=== PATIENT | male | born 1950 | race Caucasian/White ===

== ENCOUNTER 2024-02-27 17:10 | Inpatient (IN) | payer MEDICARE, MEDICAID ==
[~2024-02-27] VITALS: Ht 188 cm; Wt 89.4 kg
[2024-02-27 18:12] LABS: COVID AG,FIA SOURCE NASAL SWAB
[2024-02-27 18:18] LABS: BASOPHILS % (AUTO) 1.2 % (0.0-2.0); HEMATOCRIT 41.7 % (41-53); HEMOGLOBIN 13.7 g/dL (13.5-17.5); LYMPHOCYTES # (AUTO) 1.9 K/uL (1.0-4.8); LYMPHOCYTES % (AUTO) 16.3 % (22.0-44.0); MEAN CORPUSCULAR HEMOGLOBIN 30.2 pg (26.0-34.0); MEAN CORPUSCULAR HGB CONC 32.9 G/dL (31.0-37.0); MEAN CORPUSCULAR VOLUME 92 fL (80-100); MONOCYTES # (AUTO) 0.8 K/uL (0.1-1.0); MONOCYTES % (AUTO) 7.2 % (2.0-9.0); NEUTROPHILS # (AUTO) 8.3 K/uL (1.8-7.7); NEUTROPHILS % (AUTO) 72.3 % (40.0-70.0); PLATELET COUNT (AUTO) 289 K/uL (150-450); RED BLOOD CELL COUNT(AUTO) 4.55 MIL/uL (4.50-5.90); WHITE BLOOD COUNT (AUTO) 11.4 K/uL (4.5-11.0)
[2024-02-27 18:26] LABS: ANION GAP 7 mmol/L (8-16); APPEARANCE,URINE CLEAR (CLEAR); BILIRUBIN,URINE NEGATIVE (NEGATIVE); CALCIUM, TOTAL 9.1 mg/dL (8.8-10.5); CARBON DIOXIDE 29 mmol/L (22-29); CHLORIDE 101 mmol/L (98-107); COLOR,URINE COLORLESS (YELLOW); CREATININE 1.48 mg/dL (0.60-1.30); GLOMERULAR FILTR. RATE CALC 47 mL/min (>60); GLUCOSE, URINE (UA) NEGATIVE (NEGATIVE); GLUCOSE,RANDOM 94 mg/dL (70-110); KETONES,URINE NEGATIVE (NEGATIVE); LEUKOCYTE ESTERASE ,URINE NEGATIVE (NEGATIVE); NITRATE,URINE NEGATIVE (NEGATIVE); OCCULT BLOOD,URINE NEGATIVE (NEGATIVE); PH,URINE 6.5 (5.0-8.0); PH,URINE DRUG SCREEN 6.5 (5.0-8.0); POTASSIUM 4.7 mmol/L (3.5-5.1); PROTEIN,URINE NEGATIVE (NEGATIVE); SODIUM SERUM 137 mmol/L (136-145); SPECIFIC GRAVITIY, URINE 1.008 (1.003-1.030); UREA NITROGEN, BLOOD 18 mg/dL (7-18); UROBILINOGEN,URINE <=1.0 mg/dL (<=1.0)
[2024-02-27 18:29] LABS: ALCOHOL, BLOOD (SERUM) < 3 mg/dL (0-10); ALCOHOL, URINE DRUG SCREEN NEGATIVE (NEGATIVE); AMPHET/METH SCREEN,URINE NEGATIVE (NEGATIVE); BARBITURATE SCREEN, URINE NEGATIVE (NEGATIVE); BENZODIAZEPINES SCREEN,URINE POSITIVE (NEGATIVE); CANNABINOID SCREEN,URINE NEGATIVE (NEGATIVE); COCAINE SCREEN,URINE NEGATIVE (NEGATIVE); METHADONE SCREEN, URINE NEGATIVE (NEGATIVE); OPIATE SCREEN,URINE NEGATIVE (NEGATIVE); PHENCYCLIDINE SCREEN,URINE NEGATIVE (NEGATIVE)
[2024-02-27 18:39] LABS: SARS-COV2 (COVID) ANTIGEN,FIA Negative (Negative)
[2024-02-27] MEDS ORDERED: [UNRECOGNIZED DRUG - CODE] PO (18:48)
[2024-02-27] MEDS ORDERED: GABA300T26 PO (18:48)
[2024-02-27] MEDS ORDERED: DOCU100C33 PO (18:48)
[2024-02-27] MEDS ORDERED: LITH600C PO (18:48)
[2024-02-27] MEDS ORDERED: SERT-440 PO (18:48)
[2024-02-27] MEDS ORDERED: FLUT1BLS11 IH (18:48)
[2024-02-27] MEDS ORDERED: LAMO200T51 PO (18:48)
[2024-02-27] MEDS ORDERED: ALPR-341 PO (18:48)
[2024-02-27] MEDS ORDERED: TRAZ-186 PO (18:48)
[2024-02-27] MEDS ORDERED: ATOR-2 PO (18:48)
[2024-02-27] MEDS ORDERED: MIDO2.5T19 PO (18:48)
[2024-02-27] MEDS: LORazepam 1 MG TABLET PO ONE ×2 (18:56→20:58)
[2024-02-27] MEDS: ACETAMINOPHEN 325 MG TABLET PO ONE (20:59)
[2024-02-27] MEDS: TraZODone HCL 50 MG TABLET PO ONE (20:59)
[2024-02-28 01:55] VITALS: O2SAT 97
[2024-02-28 03:56] VITALS: BP 120/67; PULSE 56; RESP 18; TEMP 97.3; O2SAT 97
[2024-02-28] MEDS: LORazepam 2 MG TABLET PO PRN (03:58)
[2024-02-28] MEDS: ZOLPIDEM TARTRATE 10 MG TABLET PO PRN (03:58)
[2024-02-28] MEDS ORDERED: IBUPROFEN 400 MG TABLET PO PRN (05:45)
[2024-02-28] MEDS ORDERED: MAG HYDROX/ALUMINUM HYD/SIMETH ES 30 ML SUSPENSION UDCUP PO PRN ×2 (05:45→09:00)
[2024-02-28] MEDS ORDERED: CloNIDine HCL 0.1 MG TABLET PO PRN ×2 (05:45→09:00)
[2024-02-28] MEDS ORDERED: MAGNESIUM HYDROXIDE SUSPENSION 30 ML UDCUP PO PRN ×2 (05:45→09:00)
[2024-02-28] MEDS ORDERED: DOCUSATE SODIUM 100 MG CAPSULE PO PRN ×2 (05:45→09:00)
[2024-02-28] MEDS ORDERED: PETROLATUM,WHITE 28 GM JELLY TP PRN ×2 (05:45→09:00)
[2024-02-28] MEDS ORDERED: NICOTINE 14 MG/24 HOUR PATCH TD PRN (05:45)
[2024-02-28] MEDS ORDERED: ONDANSETRON 4 MG TABLET PO PRN ×3 (05:45→09:00)
[2024-02-28] MEDS ORDERED: ACETAMINOPHEN 325 MG TABLET PO PRN (05:45)
[2024-02-28] MEDS ORDERED: LOPERAMIDE HCL 2 MG CAPSULE PO PRN ×2 (05:45→09:00)
[2024-02-28] MEDS ORDERED: GuaiFENesin/D-METHORPHAN [SUGAR-FREE] 200-20MG/10 ML SYRUP UDCUP PO PRN ×2 (05:45→09:00)
[2024-02-28 08:16] VITALS: BP 106/60; PULSE 84; RESP 17; TEMP 97.7; O2SAT 95
[2024-02-28] MEDS ORDERED: NICOTINE 14 MG/24 HOUR PATCH TD SCH (09:00)
[2024-02-28] MEDS: ALBUTEROL SULFATE HFA 90 MCG/PUFF 8 GM INHALER IH PRN ×2 (09:06→18:43)
[2024-02-28] MEDS: ATORVASTATIN CALCIUM 40 MG TABLET PO SCH (10:55)
[2024-02-28] MEDS: NICOTINE 14 MG/24 HOUR PATCH TD PRN (11:03)
[2024-02-28] MEDS ORDERED: GABA-1181 PO (12:33)
[2024-02-28] MEDS ORDERED: ALPR-707 PO (12:33)
[2024-02-28] MEDS: ALPRAZolam 0.25 MG TABLET PO SCH (13:15)
[2024-02-28] MEDS: SERTRALINE HCL 100 MG TABLET PO SCH (13:15)
[2024-02-28 17:27] VITALS: BP 131/82; PULSE 82; RESP 16; O2SAT 96
[2024-02-28] MEDS: TraZODone HCL 100 MG TABLET PO SCH (20:07)
[2024-02-28] MEDS: LITHIUM CARBONATE 600 MG CAPSULE PO SCH (20:07)
[2024-02-28] MEDS: MELATONIN 5 MG TABLET PO SCH (20:07)
[2024-02-28 20:21] VITALS: BP 127/66; PULSE 85; RESP 16; TEMP 97.3; O2SAT 96
[2024-02-29] MEDS: IBUPROFEN 400 MG TABLET PO PRN (00:27)
[2024-02-29 00:31] VITALS: BP 116/69; PULSE 81; RESP 16; TEMP 97.8; O2SAT 97
[2024-02-29] MEDS: HALOPERIDOL 5 MG TABLET PO PRN (02:05)
[2024-02-29] MEDS: LEVOTHYROXINE SODIUM 112 MCG TABLET PO SCH (06:53)
[2024-02-29] MEDS: GABAPENTIN 300 MG CAPSULE PO SCH (08:26)
[2024-02-29] MEDS: MIDODRINE HCL 2.5 MG TABLET PO SCH (08:26)
[2024-02-29] MEDS: FLUTICASONE/VILANTEROL 200-25 MCG/INH INHALER [14] IH SCH (08:35)
[2024-02-29 08:41] VITALS: BP 125/68; PULSE 77; RESP 18; TEMP 97.6; O2SAT 96
[2024-02-29 08:56] LABS: BASOPHILS % (AUTO) 0.9 % (0.0-2.0); EOSINOPHILS % (AUTO) 2.9 % (1.0-6.0); HEMATOCRIT 41.6 % (41-53); HEMOGLOBIN 13.9 g/dL (13.5-17.5); LYMPHOCYTES # (AUTO) 1.4 K/uL (1.0-4.8); LYMPHOCYTES % (AUTO) 15.9 % (22.0-44.0); MEAN CORPUSCULAR HEMOGLOBIN 30.6 pg (26.0-34.0); MEAN CORPUSCULAR HGB CONC 33.3 G/dL (31.0-37.0); MEAN CORPUSCULAR VOLUME 92 fL (80-100); MONOCYTES # (AUTO) 0.4 K/uL (0.1-1.0); MONOCYTES % (AUTO) 4.8 % (2.0-9.0); NEUTROPHILS # (AUTO) 6.9 K/uL (1.8-7.7); NEUTROPHILS % (AUTO) 75.5 % (40.0-70.0); PLATELET COUNT (AUTO) 265 K/uL (150-450); RED BLOOD CELL COUNT(AUTO) 4.54 MIL/uL (4.50-5.90); RED CELL DISTRIBUTION WIDTH 14.8 % (11.5-14.5); WHITE BLOOD COUNT (AUTO) 9.1 K/uL (4.5-11.0)
[2024-02-29 09:08] LABS: HEMOGLOBIN A1C 5.4 % (3.8-5.6)
[2024-02-29 09:22] LABS: TROPONIN I-HIGH SENSITIVITY 8 ng/L (<76)
[2024-02-29 09:23] LABS: ALBUMIN 3.7 g/dL (3.4-5.0); BILIRUBIN,TOTAL 0.5 mg/dL (0.1-1.0); CREATININE 1.35 mg/dL (0.60-1.30); THYROID STIMULATING HORMONE 5.71 uIU/mL (0.36-3.74)
[2024-02-29 09:34] LABS: CHOL/HDL RATIO 2.2 (4.2-7.3)
[2024-02-29 21:00] VITALS: BP 103/64; PULSE 64; RESP 16; TEMP 97.8; O2SAT 97
[2024-02-29 23:33] VITALS: BP 96/57; RESP 16; O2SAT 96
[2024-02-29] MEDS: ACETAMINOPHEN 325 MG TABLET PO PRN (23:34)
[2024-03-01] VITALS (11 sets, daily range): BP systolic 100–134; BP diastolic 50–68; PULSE 69–84; RESP 16–18; TEMP 97.8–98.5; O2SAT 96–99
[2024-03-02 01:38] VITALS: BP 112/71; PULSE 83; RESP 18; TEMP 97.3; O2SAT 96
[2024-03-02 02:31] VITALS: BP 110/71; PULSE 73; RESP 16; TEMP 97.3; O2SAT 96
[2024-03-02 04:55] VITALS: BP 101/67; PULSE 70; RESP 16; O2SAT 97
[2024-03-02 07:44] VITALS: BP 122/65; PULSE 71; RESP 17; TEMP 97.2; O2SAT 96
[2024-03-02 08:00] VITALS: RESP 18
[2024-03-02] MEDS ORDERED: ALPR-705 PO (10:28)
[2024-03-02] MEDS ORDERED: MELA5TAB40 PO (10:28)
[2024-03-02] MEDS ORDERED: LITH600C PO (10:28)
[2024-03-02] MEDS ORDERED: ATOR40TA71 PO (10:28)
[2024-03-02] MEDS ORDERED: TRAZ-257 PO (10:28)
[2024-03-02] MEDS ORDERED: GABA-1181 PO (10:28)
[2024-03-02] MEDS ORDERED: Levothyroxine Sodium PO (10:28)
[2024-03-02] MEDS ORDERED: SERT-440 PO (10:28)
[2024-03-02] MEDS ORDERED: MIDO2.5T19 PO (10:28)
[2024-03-02] MEDS ORDERED: LEVO112T4 PO (10:31)
== END 2024-03-02 12:00 | disposition home or self-care (01) | DRG 885 ==
LOC: EMS 17:10 → B2X 22:27
PROVIDERS: ADMIT Psychiatry & Neurology Psychiatry; ATTEND Psychiatry & Neurology Psychiatry
PROC: GZHZZZZ Group Psychotherapy (ICD-10-PCS; principal; 2024-02-28)
DX: F31.4 Bipolar disorder, current episode depressed, severe, without psychotic features (principal); N17.9 Acute kidney failure, unspecified; I10 Essential (primary) hypertension; J44.9 Chronic obstructive pulmonary disease, unspecified; G40.909 Epilepsy, unspecified, not intractable, without status epilepticus; E03.9 Hypothyroidism, unspecified; E78.5 Hyperlipidemia, unspecified; Z20.822 Contact with and (suspected) exposure to COVID-19; E78.00 Pure hypercholesterolemia, unspecified; F41.1 Generalized anxiety disorder; G47.00 Insomnia, unspecified; D72.829 Elevated white blood cell count, unspecified; K59.00 Constipation, unspecified; Z79.899 Other long term (current) drug therapy; Z88.0 Allergy status to penicillin; Z91.51 Personal history of suicidal behavior; Z91.52 Personal history of nonsuicidal self-harm
CPT/HCPCS: 80048; 80053; 80061; 80307; 81003; 83036; 84443; 84484; 85025; 87081; 87481; 99285; G0480; J3535